=== PATIENT | male | born 1990 | race American Indian/Alaskan Native ===

== ENCOUNTER 2017-05-16 20:51 | Emergency (ER) | payer SELFPAY ==
[2017-05-16 23:48] LABS: Basophils # (Auto) 0.1 K/mm3 (0.0-0.1); Basophils % (Auto) 0.8 % (0.0-1.8); Eosinophils # (Auto) 0.1 K/mm3 (0.0-0.4); Eosinophils % (Auto) 0.9 % (0.0-4.3); Hematocrit 40.4 % (35.5-45.6); Hemoglobin 13.4 gm/dl (11.8-15.2); Lymphocytes # (Auto) 2.4 K/mm3 (1.2-5.4); Lymphocytes % (Auto) 27.2 % (13.4-35.0); Mean Corpuscular HGB Conc 33 % (32-34); Mean Corpuscular Hemoglobin 32 pg (28-32); Mean Corpuscular Volume 96 fl (84-94); Monocytes # (Auto) 0.5 K/mm3 (0.0-0.8); Monocytes % (Auto) 5.9 % (0.0-7.3); Platelet Count 207 K/mm3 (140-440); Red Blood Count 4.22 M/mm3 (3.65-5.03); Red Cell Distribution Width 12.3 % (13.2-15.2)
[2017-05-17 00:01] LABS: BUN/Creatinine Ratio 12; Blood Urea Nitrogen 16 mg/dL (9-20); Calcium 8.8 mg/dL (8.4-10.2); Hemolysis Index 7
[2017-05-17 00:10] LABS: Bilirubin,Urine NEG (Negative); Blood,Urine NEG (Negative); Color,Urine Yellow (Yellow); Nitrite,Urine NEG (Negative); Urobilinogen,Urine < 2.0 mg/dL (<2.0)
--- NOTE | 2017-05-17 00:43 | Emergency Department Report ---
ED Male HPI - General Chief complaint: Urogenital-Male Stated complaint: PAINFUL URINATION Time Seen by Provider: 05/16/17 23:12 Source: patient Mode of arrival: Ambulatory Limitations: No Limitations - History of Present Illness Initial comments: 26-year-old male presents with complaint of penile discharge for 2-3 days. Patient states he has some dysuria and some mild hematuria. Primarily complaining of dysuria. Patient also states that he is had some intermittent hematuria with light pink urine for 2 months. Patient denies any pain associated with urination. Denies fevers chills nausea vomiting or abdominal pain. Denies any trauma to lower abdomen or flanks. Denies any pain at this time. Patient is awake alert and oriented 3 not in acute distress. Patient states that one of his sex partners informed him that she may have exposed him to an STD earlier this week. Patient states the discharge is yellowish white and coming from urethra. Denies any genitourinary lesions otherwise. MD Complaint: penile discharge Onset/Timin -: days(s) Location: penis Radiation: none Quality: burning Worsens with: urination discharge - Related Data Sexually active: Yes Previous Rx's Medication Instructions Recorded Last Taken Type Azithromycin [Zithromax] 2 tab PO ONCE #2 tablet 10/26/13 Unknown Rx Allergies Allergy/AdvReac Type Severity Reaction Status Date / Time No Known Allergies Allergy Verified 10/26/13 09:41 ED Review of Systems ROS: Stated complaint: PAINFUL URINATION Other details as noted in HPI Constitutional: denies: chills, fever Eyes: denies: eye pain, eye discharge, vision change ENT: denies: ear pain, throat pain Respiratory: denies: cough, shortness of breath, wheezing Cardiovascular: denies: chest pain, palpitations Endocrine: no symptoms reported Gastrointestinal: denies: abdominal pain, nausea, diarrhea Genitourinary: dysuria, hematuria. denies: urgency Musculoskeletal: denies: back pain, joint swelling, arthralgia Skin: denies: rash, lesions Neurological: denies: headache, weakness, paresthesias Psychiatric: denies: anxiety, depression Hematological/Lymphatic: denies: easy bleeding, easy bruising ED Past Medical Hx - Past Medical History Previous Medical History?: No - Surgical History Past Surgical History?: No - Social History Smoking Status: Current Every Day Smoker Substance Use Type: Alcohol - Medications Home Medications: Home Medications Medication Instructions Recorded Confirmed Last Taken Type Azithromycin [Zithromax] 2 tab PO ONCE #2 tablet 10/26/13 Unknown Rx ED Physical Exam - General Limitations: No Limitations General appearance: alert, in no apparent distress - Head Head exam: Present: atraumatic, normocephalic - Eye Eye exam: Present: normal appearance, PERRL, EOMI - ENT ENT exam: Present: mucous membranes moist - Neck Neck exam: Present: normal inspection - Respiratory Respiratory exam: Present: normal lung sounds bilaterally. Absent: respiratory distress - Cardiovascular Cardiovascular Exam: Present: regular rate, normal rhythm. Absent: systolic murmur, diastolic murmur, rubs, gallop - GI/Abdominal GI/Abdominal exam: Present: soft, normal bowel sounds - Rectal Rectal exam: Present: deferred - exam: Present: normal inspection External exam: Present: normal external exam - Extremities Exam Extremities exam: Present: normal inspection - Back Exam Back exam: Present: normal inspection - Neurological Exam Neurological exam: Present: alert, oriented X3, CN II-XII intact, normal gait - Psychiatric Psychiatric exam: Present: normal affect, normal mood - Skin Skin exam: Present: warm, dry, intact, normal color. Absent: rash ED Course Vital Signs 05/16/17 21:36 Temperature 98.7 F Pulse Rate 62 Respiratory 16 Rate Blood Pressure 143/90 O2 Sat by Pulse 97 Oximetry ED Medical Decision Making - Lab Data Result diagrams: 05/16/17 23:29 05/16/17 23:29 - Medical Decision Making A/P: Urethritis, occasional hematuria 1-patient empirically treated with azithromycin and ceftriaxone. pt has visible penile discharge 2-GC cultures sent, urine culture sent 3-patient given follow-up with primary care+ urology. CBC and BMP wnl Critical care attestation.: If time is entered above; I have spent that time in minutes in the direct care of this critically ill patient, excluding procedure time. ED Disposition Clinical Impression: Urethritis Hematuria Qualifiers: Hematuria type: unspecified type Qualified Code(s): R31.9 - Hematuria, unspecified Disposition: DC-01 TO HOME OR SELFCARE Is pt being admited?: No Does the pt Need Aspirin: No Condition: Stable Instructions: Nonspecific Urethritis in Men (ED), Acute Hematuria (ED), Chlamydia Infection (ED) Referrals: PRIMARY CARE, [Primary Care Provider] - 3-5 Days [facility] [Outside] - 3-5 Days [facility] [Outside] - 3-5 Days [facility] [Provider Group] - 3-5 Days Forms: STI Treatment and Prevention Time of Disposition: 00:43
[2017-05-17] MEDS ORDERED: ZITHROMAX PO ONE (00:46)
[2017-05-17] MEDS ORDERED: ROCEPHIN IM ONE (00:47)
[2017-05-17] MEDS ORDERED: XYLOCAINE 1% MPF 5 mL INFILTRATI ONE (00:47)
[2017-05-17] MEDS ORDERED: ZOFRAN ODT PO ONE (00:50)
[2017-05-17 01:13] VITALS: BP 149/101
== END 2017-05-17 01:15 | disposition home or self-care (01) ==
LOC: ED 20:51
DX: N34.2 Other urethritis (principal); R31.9 Hematuria, unspecified; F17.200 Nicotine dependence, unspecified, uncomplicated
CPT/HCPCS: 36415; 80048; 81001; 82550; 85025; 87086; 87591; 96372; 99283; J0696; Q0162

== ENCOUNTER 2018-01-20 15:55 | Emergency (ER) | payer SELFPAY ==
[2018-01-20 16:12] VITALS: BP 131/68
[2018-01-20 17:03] LABS: Bilirubin,Urine NEG (Negative); Blood,Urine NEG (Negative); Color,Urine Yellow (Yellow); Mucus,Urine FEW /HPF; Protein,Urine >500 mg/dL (Negative); Urobilinogen,Urine < 2.0 mg/dL (<2.0)
[2018-01-20] MEDS ORDERED: ZITHROMAX PO ONE (17:26)
[2018-01-20] MEDS ORDERED: XYLOCAINE 1% MPF 5 mL INFILTRATI ONE (17:26)
[2018-01-20] MEDS ORDERED: ROCEPHIN IM ONE (17:26)
--- NOTE | 2018-01-20 17:27 | Emergency Department Report ---
ED Male HPI - General Chief complaint: Urogenital-Male Stated complaint: DISCHARGE/BLEEDING IN GENITALS Time Seen by Provider: 01/20/18 17:19 Source: patient, family Mode of arrival: Ambulatory Limitations: No Limitations - History of Present Illness Initial comments: Fever this is a 27-year-old male here for penile discharge and he said he has small amount of blood in his urine since yesterday and is having in White, cloudy penile discharge. Patient said that he thinks he got an STD from his girlfriend. Denies any back or abdominal pain. Denies any nausea vomiting, fever or chills. Pain is 4-10 burning on urination. No pain without urination MD Complaint: penile discharge, dysuria Onset/Timin -: days(s) Location: penis Radiation: none Severity: mild Severity scale (0 -10): 4 Quality: burning Consistency: intermittent Improves with: other (no pain without urination) Worsens with: urination new sexual partner discharge, dysuria. denies: swelling, mass, rash, urinary retention, blood in urine, fever, nausea/vomiting, incontinence - Related Data Sexually active: Yes Previous Rx's Medication Instructions Recorded Last Taken Type Azithromycin [Zithromax] 2 tab PO ONCE #2 tablet 10/26/13 Unknown Rx cephALEXin [Keflex] 500 mg PO Q8HR 7 Days #21 cap 01/20/18 Unknown Rx Allergies Allergy/AdvReac Type Severity Reaction Status Date / Time No Known Allergies Allergy Verified 10/26/13 09:41 ED Review of Systems ROS: Stated complaint: DISCHARGE/BLEEDING IN GENITALS Other details as noted in HPI Constitutional: denies: chills, fever Eyes: denies: eye pain, eye discharge ENT: denies: ear pain, throat pain Respiratory: denies: cough, shortness of breath, SOB with exertion, SOB at rest , wheezing Cardiovascular: denies: chest pain, palpitations, edema, syncope Gastrointestinal: denies: abdominal pain, nausea, vomiting, diarrhea Genitourinary: dysuria, hematuria, discharge. denies: urgency, frequency, testicular pain, testicular mass Musculoskeletal: denies: back pain, joint swelling, arthralgia, myalgia Skin: denies: rash, lesions Neurological: denies: headache, weakness ED Past Medical Hx - Past Medical History Previous Medical History?: Yes Additional medical history: bronchitis - Surgical History Past Surgical History?: No - Family History Family history: hypertension - Social History Smoking Status: Never Smoker Substance Use Type: Marijuana - Medications Home Medications: Home Medications Medication Instructions Recorded Confirmed Last Taken Type Azithromycin [Zithromax] 2 tab PO ONCE #2 tablet 10/26/13 Unknown Rx cephALEXin [Keflex] 500 mg PO Q8HR 7 Days #21 cap 01/20/18 Unknown Rx ED Physical Exam - General Limitations: No Limitations General appearance: alert, in no apparent distress - Head Head exam: Present: atraumatic, normocephalic, normal inspection - Eye Eye exam: Present: normal appearance, PERRL, EOMI Pupils: Present: normal accommodation - ENT ENT exam: Present: normal exam, normal orophraynx, mucous membranes moist - Neck Neck exam: Present: normal inspection. Absent: tenderness, full ROM, lymphadenopathy - Respiratory Respiratory exam: Present: normal lung sounds bilaterally. Absent: respiratory distress, chest wall tenderness - Cardiovascular Cardiovascular Exam: Present: regular rate, normal rhythm, normal heart sounds - GI/Abdominal GI/Abdominal exam: Present: soft, normal bowel sounds. Absent: distended, tenderness, guarding, rebound, rigid - Extremities Exam Extremities exam: Present: normal inspection, full ROM, normal capillary refill , other (No cce. + 2 pulses in all extremities, no neurovascular compromise). Absent: tenderness, pedal edema, joint swelling, calf tenderness - Back Exam Back exam: Present: normal inspection, full ROM, other (ambulate without any difficulties). Absent: tenderness, CVA tenderness (R), CVA tenderness (L), muscle spasm, paraspinal tenderness, vertebral tenderness, rash noted - Neurological Exam Neurological exam: Present: alert, oriented X3, normal gait - Psychiatric Psychiatric exam: Present: normal affect, normal mood - Skin Skin exam: Present: warm, dry, intact, normal color. Absent: rash ED Course Vital Signs 01/20/18 16:09 Temperature 98.7 F Pulse Rate 75 Respiratory 16 Rate Blood Pressure 131/68 O2 Sat by Pulse 98 Oximetry - Reevaluation(s) Reevaluation #1: 01/20/18 17:34 Patient given Zithromax 1 g by mouth, Rocephin 250 mg IM empirically to treat gonorrhea and chlamydia at least twice. ED Medical Decision Making - Lab Data Lab Results 01/20/18 Range/Units 16:22 Urine Color Yellow (Yellow) Urine Turbidity Slightly-cloudy (Clear) Urine pH 5.0 (5.0-7.0) Ur Specific [place] 1.022 (1.003-1.030) Urine Protein >500 (Negative) mg/dL Urine Glucose (UA) Neg (Negative) mg/dL Urine Ketones Neg (Negative) mg/dL Urine Blood Neg (Negative) Urine Nitrite Neg (Negative) Urine Bilirubin Neg (Negative) Urine Urobilinogen < 2.0 (<2.0) mg/dL Ur Leukocyte Esterase Mod (Negative) Urine WBC (Auto) 87.0 H (0.0-6.0) /HPF Urine RBC (Auto) 6.0 (0.0-6.0) /HPF Urine Mucus Few /HPF Urine culture sent - Medical Decision Making The patient's-year-old male that here to be treated for STD and complains of penile discharge and urinary burning Urinalysis positive for leukocyte Estrace and white blood cell. Greater than 500 protein and urine cloudy. Urine culture sent. Patient up to be tested for STD at health department after 7-10 days. Assessment/plan 1: Dysuria with acute cystitis without hematuria-urinalysis positive for white cells and leukocyte Estrace. Patient will be treated with Keflex outpatient2 to 2: Penile discharge with Male concern for STD without diagnosis-patient chose to be treated empiracally with azithromycin 1 g by mouth and Rocephin 250 mg IM without any adverse reaction. 0-[id number] than 500 protein in urine will refer her to primary care I discussed the patient that he needs to let his sex partners know that he was treated in the emergency room for STDs and they will need to go to the health department to get checked for STDs. I discussed safe sex and also to refrain from having sex for the next 14 days. I also instructed him that he needs to go to [facility] in 7-10 days to get checked for STDs. Patient voiced understanding. I discussed with them medication for urinary tract infection and that he needs to take this for 7 days and he voiced understanding. He also voiced understanding he needs to increase his fluid intake. Patient had protein in his urine test greater than 500 and I discussed with him that he needs to follow-up with outside [facility] as he does not have primary care physician to have urine rechecked in 7 days. Critical care attestation.: If time is entered above; I have spent that time in minutes in the direct care of this critically ill patient, excluding procedure time. ED Disposition Clinical Impression: Concern about STD in male without diagnosis, Abnormal penile discharge, Dysuria , Acute cystitis without hematuria Protein in urine Qualifiers: Proteinuria type: unspecified Qualified Code(s): R80.9 - Proteinuria, unspecified Disposition: TO HOME OR SELFCARE Is pt being admited?: No Does the pt Need Aspirin: No Condition: Stable Instructions: Dysuria (ED), Urinary Tract Infection in Men (ED), Safe Sex (ED) , Sexually Transmitted Diseases (ED) Additional Instructions: Urethra treated for gonorrhea and chlamydia in emergency room and this is a one- time treatment so he will need to follow up with health department in 7-10 days to get tested for STD. Please take Keflex for urinary tract infection Refrain from having sexual activity for the next 2 weeks Practice safe sex You have protein in urine so he will need to follow up with primary care which is at [facility] to get U urine rechecked in 7 days Referrals: [facility] [Outside] - 01/27/18 [facility] [Outside] - 7-10 days Forms: Work/School Release Form(ED)
== END 2018-01-20 18:19 | disposition home or self-care (01) ==
LOC: ED 15:55
DX: N30.01 Acute cystitis with hematuria (principal); R80.9 Proteinuria, unspecified; F12.10 Cannabis abuse, uncomplicated; Z20.2 Contact with and (suspected) exposure to infections with a predominantly sexual mode of transmission
CPT/HCPCS: 81001; 96372; 99283; J0696

== ENCOUNTER 2018-10-11 14:43 | Emergency (ER) | payer SELFPAY ==
[2018-10-11 15:15] VITALS: BP 145/88
--- NOTE | 2018-10-11 15:17 | Emergency Department Report ---
Blank Doc - Documentation Documentation: 27 y o male presents to ed cc of mid to generalized abd pain x 3 little bumps on the side of his penis that he noticed today Denies f/n/v/d/dysuria
[2018-10-11 15:41] LABS: Bilirubin,Urine NEG (Negative); Blood,Urine SM (Negative); Color,Urine Yellow (Yellow); Urobilinogen,Urine < 2.0 mg/dL (<2.0)
--- NOTE | 2018-10-11 15:54 | Emergency Department Report ---
ED Male HPI - General Chief complaint: Abdominal Pain Stated complaint: STOMACH PAIN/RASH ON GENITAL Time Seen by Provider: 10/11/18 15:12 Source: patient Mode of arrival: Ambulatory Limitations: No Limitations - History of Present Illness Initial comments: Benjamin presents with bumps on his penis for one week. Denies dysuria, abdominal pain or discharge. MD Complaint: other (bumps on penis) -: Gradual, week(s) (1) Location: penis Severity: mild Improves with: none Worsens with: none - Related Data Previous Rx's Medication Instructions Recorded Last Taken Type Azithromycin [Zithromax] 2 tab PO ONCE #2 tablet 10/26/13 Unknown Rx cephALEXin [Keflex] 500 mg PO Q8HR 7 Days #21 cap 01/20/18 Unknown Rx Allergies Allergy/AdvReac Type Severity Reaction Status Date / Time No Known Allergies Allergy Verified 10/11/18 14:44 ED Review of Systems ROS: Stated complaint: STOMACH PAIN/RASH ON GENITAL Other details as noted in HPI Constitutional: denies: fever, malaise Gastrointestinal: denies: abdominal pain, nausea, vomiting Genitourinary: denies: urgency, dysuria, frequency, hematuria, discharge, testicular pain, testicular mass ED Past Medical Hx - Past Medical History Previous Medical History?: Yes Additional medical history: bronchitis - Surgical History Past Surgical History?: No - Social History Smoking Status: Current Every Day Smoker Substance Use Type: Alcohol, Marijuana - Medications Home Medications: Home Medications Medication Instructions Recorded Confirmed Last Taken Type Azithromycin [Zithromax] 2 tab PO ONCE #2 tablet 10/26/13 Unknown Rx cephALEXin [Keflex] 500 mg PO Q8HR 7 Days #21 cap 01/20/18 Unknown Rx ED Physical Exam - General Limitations: No Limitations General appearance: alert, in no apparent distress - Head Head exam: Present: atraumatic, normocephalic - Respiratory Respiratory exam: Absent: respiratory distress - GI/Abdominal GI/Abdominal exam: Present: soft. Absent: distended, tenderness, guarding - exam: Present: other (patient preferred to show me a picture in lieu of physical exam) - Neurological Exam Neurological exam: Present: alert, oriented X3 - Psychiatric Psychiatric exam: Present: normal affect, normal mood ED Course Vital Signs 10/11/18 15:13 Temperature 98.1 F Pulse Rate 58 L Respiratory 20 Rate Blood Pressure 145/88 O2 Sat by Pulse 100 Oximetry ED Medical Decision Making - Medical Decision Making I reviewed the images of pain is provided. Small flesh-colored papules seen. I was unable to diagnose appropriately. Differential diagnosis includes herpes, genital warts, folliculitis, refer to local health department Critical care attestation.: If time is entered above; I have spent that time in minutes in the direct care of this critically ill patient, excluding procedure time. ED Disposition Clinical Impression: Penile lesion Disposition: TO HOME OR SELFCARE Is pt being admited?: No Does the pt Need Aspirin: No Condition: Stable Instructions: Genital Herpes Simplex (ED), Genital Warts (ED) Referrals: [facility] [Outside] - 3-5 Days [facility] [Outside] - 3-5 Days
== END 2018-10-11 16:14 | disposition home or self-care (01) ==
LOC: ED 14:43
DX: N48.9 Disorder of penis, unspecified (principal); F17.200 Nicotine dependence, unspecified, uncomplicated; F12.10 Cannabis abuse, uncomplicated
CPT/HCPCS: 81001

== ENCOUNTER 2021-02-05 10:18 | Emergency (ER) | payer SELFPAY ==
[2021-02-05 10:25] VITALS: BP 108/41
[2021-02-05] MEDS ORDERED: IPRATROPIUM/ALBUTEROL SULFATE 3 ML AMPUL.NEB IH ONE (11:12)
--- NOTE | 2021-02-05 11:19 | Emergency Department Report ---
ED Shortness of Breath HPI - General Chief Complaint: Dyspnea/Respdistress Stated Complaint: SOB Time Seen by Provider: 02/05/21 11:10 Source: patient, old records reviewed Mode of arrival: Ambulatory Limitations: No Limitations - History of Present Illness Initial Comments: 30-year-old male with no significant past medical history [facility]. Patient feels winded with minimal exertional activity. Using inhaler without improvement. Patient denies wheezing. Last week patient had 1 week of URI symptoms including cough and fever. Patient was not tested for Covid. He is unvaccinated for Covid. Patient complains of chest discomfort due to shortness of breath. He admits to ecstasy use 2 da weeks ago and endorses occasional use. He uses marijuana daily. He denies recent cocaine use. He denies calf tenderness, leg edema, recent travel, history of PE/DVT. Patient also secondary complaint ongoing bilateral testicular pain x1 year since diagnosis with penile warts. Patient denies dysuria or penile discharge. Patient is requesting a cream for his genital warts As per medical record patient has resented with genital complaints in the past and diagnosed with genital warts versus herpes and positive for gonorrhea - Related Data Previous Rx's Medication Instructions Recorded Last Taken Type Azithromycin [Zithromax] 2 tab PO ONCE #2 tablet 10/26/13 Unknown Rx cephALEXin [Keflex] 500 mg PO Q8HR 7 Days #21 cap 01/20/18 Unknown Rx Albuterol Sulfate [Proventil Hfa] 1 - 2 puff IH QID PRN #1 hfa.aer.ad 02/05/21 Unknown Rx Imiquimod [Zyclara 3.75%] 1 applicatio TP 3XW #1 cream.pack 02/05/21 Unknown Rx Allergies Allergy/AdvReac Type Severity Reaction Status Date / Time No Known Allergies Allergy Verified 10/11/18 14:44 ED Review of Systems ROS: Stated complaint: SOB Other details as noted in HPI Comment: All other systems reviewed and negative ED Past Medical Hx - Past Medical History Additional medical history: bronchitis - Social History Smoking Status: Current Every Day Smoker Substance Use Type: Alcohol, Marijuana - Medications Home Medications: Home Medications Medication Instructions Recorded Confirmed Last Taken Type Azithromycin [Zithromax] 2 tab PO ONCE #2 tablet 10/26/13 Unknown Rx cephALEXin [Keflex] 500 mg PO Q8HR 7 Days #21 cap 01/20/18 Unknown Rx Albuterol Sulfate [Proventil Hfa] 1 - 2 puff IH QID PRN #1 hfa.aer.ad 02/05/21 Unknown Rx Imiquimod [Zyclara 3.75%] 1 applicatio TP 3XW #1 cream.pack 02/05/21 Unknown Rx ED Physical Exam - General Limitations: No Limitations - Other Other exam information: General: No acute distress Head: Atraumatic Eyes: normal appearance ENT: Moist mucous membranes Neck: Normal appearance, no midline tenderness Chest: Clear to auscultation bilaterally, no wheezes, rales, or crackles CV: Regular rate and rhythm Abdomen: Soft, normal bowel sounds, nontender, nondistended, no rebound or guarding : Bilateral upper testicular tenderness to palpation without edema, penile discharge uncircumcised, no penile discharge, several flat appearing warts to the left base of pain Back: Normal inspection Extremity: Normal inspection, full range of motion, no calf tenderness or edema Neuro: Alert O x 3, no facial asymmetry, speech clear, no gross motor sensory deficit Psych: Appropriate behavior Skin: No rash ED Course Vital Signs 02/05/21 10:23 Temperature 98 F Pulse Rate 62 Respiratory 16 Rate Blood Pressure 108/41 [Left] O2 Sat by Pulse 100 Oximetry - Reevaluation(s) Reevaluation #1: 02/05/21 14: 40 Patient felt better after bronchodilators/DuoNeb ED Medical Decision Making - Lab Data Result diagrams: 02/05/21 11:15 02/05/21 11:15 Lab Results 02/05/21 02/05/21 02/05/21 Range/Units 11:15 11:15 11:15 WBC 6.2 (4.5-11.0) K/mm3 RBC 4.13 (3.65-5.03) M/mm3 Hgb 13.6 (11.8-15.2) gm/dl Hct 40.2 (35.5-45.6) % MCV 97 H (84-94) fl MCH 33 H (28-32) pg MCHC 34 (32-34) % RDW 12.1 L (13.2-15.2) % Plt Count 209 (140-440) K/mm3 Lymph % (Auto) 16.8 (13.4-35.0) % Luce % (Auto) 12.1 H (0.0-7.3) % Eos % (Auto) 0.1 (0.0-4.3) % Baso % (Auto) 0.4 (0.0-1.8) % Lymph # (Auto) 1.0 L (1.2-5.4) K/mm3 Luce # (Auto) 0.7 (0.0-0.8) K/mm3 Eos # (Auto) 0.0 (0.0-0.4) K/mm3 Baso # (Auto) 0.0 (0.0-0.1) K/mm3 Seg Neutrophils % 70.6 H (40.0-70.0) % Seg Neutrophils # 4.4 (1.8-7.7) K/mm3 D-Dimer 212.77 (0-234) ng/mlDDU Sodium 132 L (137-145) mmol/L Potassium 5.1 H (3.6-5.0) mmol/L Chloride 95.8 L (98-107) mmol/L Carbon Dioxide 25 (22-30) mmol/L Anion Gap 16 mmol/L BUN 18 (9-20) mg/dL Creatinine 1.7 H (0.8-1.3) mg/dL Estimated GFR 58 ml/min BUN/Creatinine Ratio 11 % Glucose 104 H (75-100) mg/dL Calcium 9.3 (8.4-10.2) mg/dL Magnesium 1.80 (1.7-2.3) mg/dL Troponin T (0.00-0.029) ng/mL Urine Color (Yellow) Urine Turbidity (Clear) Urine pH (5.0-7.0) Ur Specific [place] (1.003-1.030) Urine Protein (Negative) mg/dL Urine Glucose (UA) (Negative) mg/dL Urine Ketones (Negative) mg/dL Urine Blood (Negative) Urine Nitrite (Negative) Urine Bilirubin (Negative) Urine Urobilinogen (<2.0) mg/dL Ur Leukocyte Esterase (Negative) Urine WBC (Auto) (0.0-6.0) /HPF Urine RBC (Auto) (0.0-6.0) /HPF U Epithel Cells (Auto) (0-13.0) /HPF Urine Bacteria (Auto) (Negative) /HPF Urine Mucus /HPF Urine Opiates Screen Urine Methadone Screen Ur Barbiturates Screen Ur Phencyclidine Scrn Ur Amphetamines Screen U Benzodiazepines Scrn Urine Cocaine Screen 02/05/21 02/05/21 02/05/21 Range/Units 11:15 Unknown Unknown WBC (4.5-11.0) K/mm3 RBC (3.65-5.03) M/mm3 Hgb (11.8-15.2) gm/dl Hct (35.5-45.6) % MCV (84-94) fl MCH (28-32) pg MCHC (32-34) % RDW (13.2-15.2) % Plt Count (140-440) K/mm3 Lymph % (Auto) (13.4-35.0) % Luce % (Auto) (0.0-7.3) % Eos % (Auto) (0.0-4.3) % Baso % (Auto) (0.0-1.8) % Lymph # (Auto) (1.2-5.4) K/mm3 Luce # (Auto) (0.0-0.8) K/mm3 Eos # (Auto) (0.0-0.4) K/mm3 Baso # (Auto) (0.0-0.1) K/mm3 Seg Neutrophils % (40.0-70.0) % Seg Neutrophils # (1.8-7.7) K/mm3 D-Dimer (0-234) ng/mlDDU Sodium (137-145) mmol/L Potassium (3.6-5.0) mmol/L Chloride (98-107) mmol/L Carbon Dioxide (22-30) mmol/L Anion Gap mmol/L BUN (9-20) mg/dL Creatinine (0.8-1.3) mg/dL Estimated GFR ml/min BUN/Creatinine Ratio % Glucose (75-100) mg/dL Calcium (8.4-10.2) mg/dL Magnesium (1.7-2.3) mg/dL Troponin T < 0.010 (0.00-0.029) ng/mL Urine Color Yellow (Yellow) Urine Turbidity Clear (Clear) Urine pH 5.0 (5.0-7.0) Ur Specific [place] 1.023 (1.003-1.030) Urine Protein >500 (Negative) mg/dL Urine Glucose (UA) Neg (Negative) mg/dL Urine Ketones Neg (Negative) mg/dL Urine Blood Neg (Negative) Urine Nitrite Neg (Negative) Urine Bilirubin Neg (Negative) Urine Urobilinogen 4.0 (<2.0) mg/dL Ur Leukocyte Esterase Neg (Negative) Urine WBC (Auto) 7.0 H (0.0-6.0) /HPF Urine RBC (Auto) 3.0 (0.0-6.0) /HPF U Epithel Cells (Auto) 1.0 (0-13.0) /HPF Urine Bacteria (Auto) 1+ (Negative) /HPF Urine Mucus Few /HPF Urine Opiates Screen Negative Urine Methadone Screen Negative Ur Barbiturates Screen Negative Ur Phencyclidine Scrn Negative Ur Amphetamines Screen Negative U Benzodiazepines Scrn Negative Urine Cocaine Screen Negative - EKG Data -: EKG Interpreted by Me (Multiple PVCs, biatrial enlargement) EKG shows normal: sinus rhythm, intervals (QTC 445), ST-T waves (No ST elevation) Rate: normal (85) - Radiology Data Radiology results: report reviewed CHEST 2 VIEWS INDICATION / CLINICAL INFORMATION: sob, recent fever, cough. COMPARISON: None available. FINDINGS: SUPPORT DEVICES: None. HEART / MEDIASTINUM: No significant abnormality. LUNGS / PLEURA: No significant pulmonary or pleural abnormality. No pneumothorax. ADDITIONAL FINDINGS: No significant additional findings. IMPRESSION: 1. No acute findings. - Medical Decision Making 30-year-old male presents to the hospital with dyspnea on exertion for the last 3 days a recent URI infectious with fever last week. Patient is unclear if he had Covid. Patient does not have signs of infiltrate suggestive of pneumonia or signs of CHF on chest x-ray. Patient does not have high risk for PE/DVT has tested negative for and a negative D-dimer. Patient also lacks tachycardia or hypoxia Patient does not have pleuritic chest pain but has EKG abnormalities suggestive of biatrial enlargement and PVCs. Magnesium level normal. Outpatient cardiology follow-up advised. Patient has a heart score of Patient does have elevation in creatinine. CK was normal. Patient will need outpatient cardiology follow-up Patient also has testicular complaints with positive white cells and bacteria in the urine and history of urethritis in the past. Patient treated with gonorrhea and chlamydia. Gonorrhea and Chlamydia test ordered. imiquimod topical cream will be prescribed. Outpatient follow-up advised Patient treated with DuoNeb in the ED and continued neb treatment will be advised Critical Care Time: No Critical care attestation.: If time is entered above; I have spent that time in minutes in the direct care of this critically ill patient, excluding procedure time. ED Disposition Clinical Impression: Renal insufficiency, mild, Marijuana smoker, Acute bronchitis, Abnormal EKG, Urethritis, Genital warts Disposition: 01 HOME / SELF CARE / HOMELESS Is pt being admited?: No Condition: Stable Instructions: Acute Bronchitis (ED), Acute Bronchitis, Adult, [id number], What You Need to Know About Marijuana Use, Urethritis, Adult, Acute Kidney Injury, Adult, Genital Warts Additional Instructions: Take the medication as prescribed. Follow-up with your doctor or doctor/clinic provided. Return if symptoms worsen as indicated by your discharge instructions. You need to follow-up the following specialist: Kidney specialist: Your kidney function is mildly abnormal. Creatinine is 1.7. Follow-up with nephrology/K specialist for further evaluation. You may also start with a primary care doctor for blood work recheck prior to seeing specialist Hand Stapler: Your EKG is slightly abnormal showing biatrial enlargement. The significance of this is unknown. Follow-up with a communications department chair for reevaluation determine if further work-up is required Dermatology: Regarding your genital warts and for possible removal or your warts. You were treated for gonorrhea chlamydia today. Primary care doctor: Follow-up regarding your respiratory symptoms and other issues listed above. Continue to take the albuterol as needed Prescriptions: Albuterol Sulfate [Proventil Hfa] 1 - 2 puff IH QID PRN #1 hfa.aer.ad PRN Reason: Shortness Of Breath Imiquimod [Zyclara 3.75%] 1 applicatio TP 3XW #1 cream.pack Referrals: NAVI IGLESIAS MD [Primary Care Provider] - 3-5 Days [facility] [Provider Group] - 3-5 Days (Primary care clinic) RENETTA RIVERA MD [Staff Physician] - 3-5 Days (Primary care doctor) RUPINDER BRIAN MD [Staff Physician] - 3-5 Days (Kidney doctor) MISAEL ZULETA MD [Staff Physician] - 3-5 Days (Hand Stapler) Forms: STI Treatment and Prevention Time of Disposition: 15:02 HEART Score - HEART Score History: Slightly suspicious EKG: Non-specific Age: < 45 Risk factors: No known risk factors Troponin: Troponin T < 0.010 ng/mL (0.00-0.029) 02/05/21 11:15 Troponin: < normal limit HEART Score: 1
[2021-02-05 12:02] LABS: Basophils % (Auto) 0.4 % (0.0-1.8); Eosinophils % (Auto) 0.1 % (0.0-4.3); Hematocrit 40.2 % (35.5-45.6); Hemoglobin 13.6 gm/dl (11.8-15.2); Lymphocytes % (Auto) 16.8 % (13.4-35.0); Mean Corpuscular HGB Conc 34 % (32-34); Mean Corpuscular Volume 97 fl (84-94); Monocytes # (Auto) 0.7 K/mm3 (0.0-0.8); Monocytes % (Auto) 12.1 % (0.0-7.3); Platelet Count 209 K/mm3 (140-440); Red Blood Count 4.13 M/mm3 (3.65-5.03); Red Cell Distribution Width 12.1 % (13.2-15.2)
--- NOTE | 2021-02-05 12:06 | XRay Report ---
CHEST 2 VIEWS INDICATION / CLINICAL INFORMATION: sob, recent fever, cough. COMPARISON: None available. FINDINGS: SUPPORT DEVICES: None. HEART / MEDIASTINUM: No significant abnormality. LUNGS / PLEURA: No significant pulmonary or pleural abnormality. No pneumothorax. ADDITIONAL FINDINGS: No significant additional findings. IMPRESSION: 1. No acute findings. Signer Name: Ronen Sawant MD Signed: 02/05/2021 12:02 PM Workstation Name: [id number]
[2021-02-05 12:19] LABS: Calcium 9.3 mg/dL (8.4-10.2)
[2021-02-05 12:27] LABS: Amphetamine Screen,Urine Negative; Benzodiazepines Screen,Urine Negative; Cocaine Screen,Urine Negative; Methadone Screen,Urine Negative; Opiate Screen,Urine Negative
[2021-02-05 12:41] LABS: Bacteria,Urine 1+ /HPF (Negative); Bilirubin,Urine NEG (Negative); Blood,Urine NEG (Negative); Color,Urine Yellow (Yellow); Mucus,Urine FEW /HPF
[2021-02-05 12:42] LABS: Protein,Urine >500 mg/dL (Negative)
[2021-02-05] MEDS ORDERED: LIDOCAINE-MPF (1%) 10 MG/1 ML VIAL 5 ML INFILTRATI ONE (12:53)
[2021-02-05] MEDS ORDERED: AZITHROMYCIN 250 MG TAB PO ONE (12:53)
[2021-02-05 14:15] LABS: Cannabinoid Screen,Urine Positive
--- NOTE | 2021-02-12 13:57 | Electrocardiograph Report ---
[facility] Test Date: 2021-02-05 Test Time: 10:27:57 Pat Name: PIPO ESCOBEDO Department: Room: Gender: M Ladies Suit Operator: JUAN DANIEL : 1990 Requested By: LARS CORONA Order Number: [id number] Reading MD: Belen Meeks Measurements Intervals [place] Rate: 85 P: 82 MS: 163 QRS: 81 QRSD: 76 T: 67 QT: 371 QTc: 445 Interpretive Statements Sinus rhythm Multiple ventricular premature complexes Biatrial enlargement No previous ECG available for comparison Electronically Signed On 02-12-2021 13:56:48 EDT by Belen Meeks
== END 2021-02-05 15:36 | disposition home or self-care (01) ==
LOC: ED 10:18
DX: N28.9 Disorder of kidney and ureter, unspecified (principal); J20.9 Acute bronchitis, unspecified; N34.2 Other urethritis; B07.9 Viral wart, unspecified; F12.90 Cannabis use, unspecified, uncomplicated; R94.31 Abnormal electrocardiogram [ECG] [EKG]; F17.200 Nicotine dependence, unspecified, uncomplicated; Z79.899 Other long term (current) drug therapy
CPT/HCPCS: 36415; 71046; 80048; 80307; 81001; 82550; 83735; 84484; 85025; 85379; 93005; 94640; 96372; 99284; J0696